=== PATIENT | female | born 1960 | race Asian ===

== ENCOUNTER 2023-01-26 09:31 | Inpatient (IN) | payer OTHER ==
[~2023-01-26] VITALS: Ht 152.4 cm; Wt 62.2 kg
[2023-01-26 09:56] LABS: BASOPHILS # (AUTO) 0.1 K/UL (0.0-0.2); BASOPHILS % (AUTO) 0.4 % (0.0-2.0); EOSINOPHILS # (AUTO) 0.1 K/uL (0.0-0.7); EOSINOPHILS % (AUTO) 0.3 % (0.0-7.0); HEMATOCRIT 33.8 % (31.2-41.9); HEMOGLOBIN 10.8 g/dL (10.9-14.3); LYMPHOCYTES # (AUTO) 0.6 K/uL (0.8-4.8); LYMPHOCYTES % (AUTO) 1.9 % (20.5-51.5); MEAN CORPUSCULAR HEMOGLOBIN 27.9 uug (24.7-32.8); MEAN CORPUSCULAR HGB CONC 32 g/dL (32.3-35.6); MEAN CORPUSCULAR VOLUME 87.3 fL (75.5-95.3); MONOCYTES # (AUTO) 1.3 K/uL (0.1-1.30); MONOCYTES % (AUTO) 4.4 % (0.0-11.0); NEUTROPHILS # (AUTO) 27.2 K/uL (1.8-8.9); PLATELET COUNT (AUTO) 415 K/uL (179-408); RED BLOOD CELL COUNT(AUTO) 3.87 MIL/uL (3.63-4.92); RED CELL DISTRIBUTION WIDTH 17.8 % (12.3-17.7); WHITE BLOOD COUNT (AUTO) 29.2 K/uL (3.8-11.8)
[2023-01-26 10:15] LABS: DIFFERENTIAL COMMENT 1
[2023-01-26 10:19] LABS: CALCIUM 10.3 mg/dL (8.5-10.1); CARBON DIOXIDE 22 mmol/L (21-32); CHLORIDE 98 mmol/L (98-107); CREATININE 5.9 mg/dL (0.6-1.3); GLUCOSE 162 mg/dL (74-106); POTASSIUM 5.3 mmol/L (3.5-5.1); SODIUM SERUM 133 mmol/L (136-145); UREA NITROGEN, BLOOD 61 mg/dL (7-18)
[2023-01-26 10:21] LABS: *BILIRUBIN,URIN NEGATIVE (NEGATIVE); *BLOOD, URINE 2+ (NEGATIVE); *CLARITY,URINE CLOUDY (CLEAR); *COLOR,URINE YELLOW (YELLOW); *KETONES,URINE NEGATIVE (NEGATIVE); *UROBILINOGEN,URINE 0.2 E.U./dl (NORMAL); LEUKOCYTE ESTERASE ,URINE 3+ (NEGATIVE); NITRITE, URINE NEGATIVE (NEGATIVE); PH,URINE 8.5 (5.0-8.0)
[2023-01-26] MEDS ORDERED: POLY17PO4 PO (10:23)
[2023-01-26] MEDS ORDERED: ZINC220C6 PO (10:23)
[2023-01-26] MEDS ORDERED: CARV25TA2 PO (10:23)
[2023-01-26] MEDS ORDERED: SEVE800T8 PO (10:23)
[2023-01-26] MEDS ORDERED: SENN1TAB59 PO (10:23)
[2023-01-26] MEDS ORDERED: AMLO-212 PO (10:23)
[2023-01-26] MEDS ORDERED: CALC500T88 PO (10:23)
[2023-01-26] MEDS ORDERED: FURO40TA5 PO (10:23)
[2023-01-26] MEDS ORDERED: TRAM50TA2 PO (10:23)
[2023-01-26] MEDS ORDERED: GLUC1KIT IM (10:23)
[2023-01-26] MEDS ORDERED: FOLI0.8T2 PO (10:23)
[2023-01-26] MEDS ORDERED: ACET325T53 PO (10:23)
[2023-01-26] MEDS ORDERED: PANT40TA49 PO (10:23)
[2023-01-26] MEDS ORDERED: ASPI81TA31 PO (10:23)
[2023-01-26] MEDS ORDERED: DOCU100T2 PO (10:23)
[2023-01-26] MEDS ORDERED: INSU100V39 SQ (10:23)
[2023-01-26] MEDS ORDERED: FERR325T28 PO (10:23)
[2023-01-26] MEDS ORDERED: CLON-418 PO (10:23)
[2023-01-26] MEDS ORDERED: GUAI100S69 PO (10:23)
[2023-01-26 10:25] LABS: ALANINE AMINOTRANSFERASE < 6 U/L (14-59); ALBUMIN 3.4 g/dL (3.4-5.0); ALKALINE PHOSPHATASE 104 U/L (50-136); ASPARTATE AMINOTRANSFERASE < 5 U/L (15-37); BILIRUBIN,DIRECT 0.1 mg/dL (0.0-0.2); BILIRUBIN,TOTAL 0.5 mg/dL (0.2-1.0); TOTAL PROTEIN, SERUM 7.5 g/dL (6.4-8.2)
[2023-01-26 10:27] LABS: *PROTEIN,URINE 3+ (NEGATIVE); UGLUCOSE 1+ (NEGATIVE)
[2023-01-26 10:47] LABS: BACTERIA,URINE MANY /HPF (NONE SEEN); RBC,URINE 20-50 /HPF (0-3); SQUAMOUS EPITHELIAL CELL,UR MODERATE /HPF (NONE SEEN); WBC,URINE TNTC /HPF (0-3)
[2023-01-26] MEDS ORDERED: MEROPENEM 1 G in IV NORMAL SALINE 100 ML IV ONE (11:00)
[2023-01-26] MEDS ORDERED: VANCOMYCIN IV 1,000 MG in IV DEXTROSE 5% 250 ML IV ONE (11:00)
[2023-01-26] MEDS ORDERED: MEROPENEM 1GM/NS 100ML IVPB **ER PYXIS ONLY IV ONE (11:14)
[2023-01-26] MEDS ORDERED: VANCOMYCIN IV 200 ML ONE (11:14)
[2023-01-26] MEDS ORDERED: TRAMADOL HCL 50 MG TABLET PO PRN ×2 (14:15→16:30)
[2023-01-26] MEDS ORDERED: GUAIFENESIN SUGAR FREE 100 MG/5 ML UDC PO PRN (14:15)
[2023-01-26] MEDS ORDERED: CALCIUM CARBONATE 500 MG TABLET PO PRN (14:15)
[2023-01-26 14:40] VITALS: BP 101/62; TEMP 98.3; O2SAT 99
[2023-01-26] MEDS ORDERED: ACETAMINOPHEN 325 MG TABLET PO PRN (15:15)
[2023-01-26] MEDS ORDERED: ONDANSETRON 4 MG/2 ML VIAL IV PRN (15:15)
[2023-01-26 16:00] VITALS: O2SAT 98
[2023-01-26] MEDS ORDERED: CALCIUM CARBONATE 500 MG TAB.CHEW PO PRN (16:30)
[2023-01-26] MEDS ORDERED: SEVELAMER CARBONATE 800 MG TABLET PO SCH (16:30)
[2023-01-26] MEDS: AMLODIPINE 5 MG TABLET PO SCH (16:54)
[2023-01-26] MEDS: DOCUSATE SODIUM 100 MG CAPSULE PO SCH (16:54)
[2023-01-26] MEDS: PIPERACILLIN/TAZO 2.25 G in IV DEXTROSE 5% 50 ML IV SCH (16:57)
[2023-01-26] MEDS ORDERED: CARVEDILOL 25 MG TABLET PO SCH (17:00)
[2023-01-26] MEDS ORDERED: Medication Not On Formulary EA (Docusate Sodium 1 TAB) PO SCH (17:00)
[2023-01-26] MEDS ORDERED: FOLIC ACID/VITAMIN B COMP W-C TABLET PO SCH (17:00)
[2023-01-26 20:00] VITALS: BP 125/66; TEMP 98.3; O2SAT 99
[2023-01-26] MEDS ORDERED: DOCUSATE SODIUM 100 MG CAPSULE PO SCH (21:00)
[2023-01-27] VITALS (7 sets, daily range): BP systolic 115–157; BP diastolic 46–65; TEMP 98.1–98.7; O2SAT 95–99
[2023-01-27] MEDS: HYDROCODONE/APAP 5-325MG TABLET PO PRN ×3 (01:13→22:06)
[2023-01-27] MEDS: PIPERACILLIN/TAZO 2.25 G in IV DEXTROSE 5% 50 ML IV SCH ×3 (01:13→16:45)
[2023-01-27] MEDS: PANTOPRAZOLE SODIUM 40 MG TABLET.DR PO SCH (06:03)
[2023-01-27 07:13] LABS: BASOPHILS # (AUTO) 0.1 K/UL (0.0-0.2); BASOPHILS % (AUTO) 0.6 % (0.0-2.0); EOSINOPHILS # (AUTO) 0.2 K/uL (0.0-0.7); EOSINOPHILS % (AUTO) 1.1 % (0.0-7.0); HEMATOCRIT 30.3 % (31.2-41.9); HEMOGLOBIN 9.9 g/dL (10.9-14.3); LYMPHOCYTES # (AUTO) 0.6 K/uL (0.8-4.8); LYMPHOCYTES % (AUTO) 4.4 % (20.5-51.5); MEAN CORPUSCULAR HEMOGLOBIN 28.7 uug (24.7-32.8); MEAN CORPUSCULAR HGB CONC 33 g/dL (32.3-35.6); MEAN CORPUSCULAR VOLUME 87.8 fL (75.5-95.3); MONOCYTES # (AUTO) 0.7 K/uL (0.1-1.30); NEUTROPHILS # (AUTO) 12.8 K/uL (1.8-8.9); NEUTROPHILS % (AUTO) 88.9 % (38.5-71.5); PLATELET COUNT (AUTO) 455 K/uL (179-408); RED BLOOD CELL COUNT(AUTO) 3.46 MIL/uL (3.63-4.92); WHITE BLOOD COUNT (AUTO) 14.4 K/uL (3.8-11.8)
[2023-01-27 07:38] LABS: DIFFERENTIAL COMMENT 1
[2023-01-27 07:44] LABS: IRON, SERUM 12 ug/dL (50-175)
[2023-01-27 08:21] LABS: THYROID STIMULATING HORMONE 1.528 mIU/mL (0.358-3.740)
[2023-01-27 08:22] LABS: ALANINE AMINOTRANSFERASE < 6 U/L (14-59); ALKALINE PHOSPHATASE 87 U/L (50-136); BILIRUBIN,TOTAL 0.5 mg/dL (0.2-1.0); CALCIUM 9.7 mg/dL (8.5-10.1); CARBON DIOXIDE 28 mmol/L (21-32); CHLORIDE 96 mmol/L (98-107); CREATININE 4.5 mg/dL (0.6-1.3); GLUCOSE 128 mg/dL (74-106); MAGNESIUM 2.3 mg/dL (1.8-2.4); NT-PRO BNP 47692 pg/mL (0-125); PHOSPHOROUS 3.3 mg/dL (2.5-4.9); POTASSIUM 4.2 mmol/L (3.5-5.1); SODIUM SERUM 132 mmol/L (136-145); TOTAL PROTEIN, SERUM 7.1 g/dL (6.4-8.2); UREA NITROGEN, BLOOD 37 mg/dL (7-18); VANCOMYCIN,RANDOM 15.1 ug/mL (20.0-30.0)
[2023-01-27] MEDS: FOLIC ACID/VITAMIN B COMP W-C TABLET PO SCH (08:31)
[2023-01-27] MEDS: ZINC SULFATE 220 MG CAPSULE PO SCH (08:31)
[2023-01-27] MEDS: AMLODIPINE 5 MG TABLET PO SCH ×2 (08:32→16:46)
[2023-01-27] MEDS: ASPIRIN 81 MG TAB.CHEW PO SCH (08:32)
[2023-01-27] MEDS: DOCUSATE SODIUM 100 MG CAPSULE PO SCH ×2 (08:32→16:45)
[2023-01-27] MEDS: CARVEDILOL 25 MG TABLET PO SCH ×2 (08:33→16:46)
[2023-01-27 08:46] LABS: CHOLESTEROL 108 mg/dL (<200); HDL CHOLESTEROL 62 mg/dL (40-60); TRIGLYCERIDES 84 MG/DL (30-150)
[2023-01-27 08:55] LABS: ASPARTATE AMINOTRANSFERASE 6 U/L (15-37)
[2023-01-27] MEDS ORDERED: ZINC SULFATE 220 MG CAPSULE PO SCH (09:00)
[2023-01-27] MEDS ORDERED: VANCOMYCIN IV 500 MG in IV DEXTROSE 5% 100 ML IV PRN (10:00)
[2023-01-27] MEDS: SEVELAMER CARBONATE 800 MG TABLET PO SCH ×2 (12:13→16:45)
[2023-01-27] MEDS: SOD FERRIC GLUC COMPLX/SUCROSE 125 MG in IV NORMAL SALINE 100 ML IV SCH (17:53)
[2023-01-28] MEDS: PIPERACILLIN/TAZO 2.25 G in IV DEXTROSE 5% 50 ML IV SCH ×3 (01:14→16:32)
[2023-01-28] MEDS: PANTOPRAZOLE SODIUM 40 MG TABLET.DR PO SCH (05:25)
[2023-01-28 06:34] LABS: BASOPHILS # (AUTO) 0.1 K/UL (0.0-0.2); BASOPHILS % (AUTO) 0.9 % (0.0-2.0); EOSINOPHILS # (AUTO) 0.4 K/uL (0.0-0.7); EOSINOPHILS % (AUTO) 4.3 % (0.0-7.0); HEMATOCRIT 29.3 % (31.2-41.9); HEMOGLOBIN 9.7 g/dL (10.9-14.3); LYMPHOCYTES # (AUTO) 1.2 K/uL (0.8-4.8); LYMPHOCYTES % (AUTO) 12.8 % (20.5-51.5); MEAN CORPUSCULAR HEMOGLOBIN 28.8 uug (24.7-32.8); MEAN CORPUSCULAR HGB CONC 33 g/dL (32.3-35.6); MEAN CORPUSCULAR VOLUME 87.3 fL (75.5-95.3); MONOCYTES # (AUTO) 0.9 K/uL (0.1-1.30); MONOCYTES % (AUTO) 10.1 % (0.0-11.0); NEUTROPHILS # (AUTO) 6.7 K/uL (1.8-8.9); NEUTROPHILS % (AUTO) 71.9 % (38.5-71.5); PLATELET COUNT (AUTO) 441 K/uL (179-408); RED BLOOD CELL COUNT(AUTO) 3.36 MIL/uL (3.63-4.92); RED CELL DISTRIBUTION WIDTH 18.2 % (12.3-17.7); WHITE BLOOD COUNT (AUTO) 9.3 K/uL (3.8-11.8)
[2023-01-28 06:52] LABS: CALCIUM 9.5 mg/dL (8.5-10.1); CREATININE 6.1 mg/dL (0.6-1.3); MAGNESIUM 2.1 mg/dL (1.8-2.4); POTASSIUM 4.9 mmol/L (3.5-5.1); VANCOMYCIN,RANDOM 12.8 ug/mL (20.0-30.0)
[2023-01-28 07:01] LABS: DIFFERENTIAL COMMENT 1
[2023-01-28] MEDS: ASPIRIN 81 MG TAB.CHEW PO SCH (08:45)
[2023-01-28] MEDS: DOCUSATE SODIUM 100 MG CAPSULE PO SCH ×2 (08:45→16:31)
[2023-01-28] MEDS: ZINC SULFATE 220 MG CAPSULE PO SCH (08:45)
[2023-01-28] MEDS: FOLIC ACID/VITAMIN B COMP W-C TABLET PO SCH (08:45)
[2023-01-28] MEDS: SEVELAMER CARBONATE 800 MG TABLET PO SCH ×3 (08:45→16:36)
[2023-01-28] MEDS: AMLODIPINE 5 MG TABLET PO SCH ×2 (08:53→16:31)
[2023-01-28] MEDS: CARVEDILOL 25 MG TABLET PO SCH ×2 (08:53→16:34)
[2023-01-28 11:09] VITALS: BP 157/57; TEMP 98; O2SAT 94
[2023-01-28] MEDS: SOD FERRIC GLUC COMPLX/SUCROSE 125 MG in IV NORMAL SALINE 100 ML IV SCH (14:57)
[2023-01-28 15:56] VITALS: BP 168/62; TEMP 98.4; O2SAT 96
[2023-01-28] MEDS ORDERED: hydrALAZINE HCL 25 MG TABLET PO PRN (19:15)
[2023-01-28 20:00] VITALS: BP 180/67; TEMP 98; O2SAT 93
[2023-01-29] VITALS: BP 167/64; TEMP 98.3; O2SAT 94
[2023-01-29] MEDS: PIPERACILLIN/TAZO 2.25 G in IV DEXTROSE 5% 50 ML IV SCH ×3 (01:47→17:21)
[2023-01-29 04:00] VITALS: BP 161/71; TEMP 98.2; O2SAT 94
[2023-01-29] MEDS: PANTOPRAZOLE SODIUM 40 MG TABLET.DR PO SCH (06:07)
[2023-01-29 07:10] LABS: BASOPHILS # (AUTO) 0.1 K/UL (0.0-0.2); BASOPHILS % (AUTO) 1.3 % (0.0-2.0); EOSINOPHILS # (AUTO) 0.5 K/uL (0.0-0.7); EOSINOPHILS % (AUTO) 6.8 % (0.0-7.0); HEMATOCRIT 28.8 % (31.2-41.9); HEMOGLOBIN 9.5 g/dL (10.9-14.3); LYMPHOCYTES % (AUTO) 13.9 % (20.5-51.5); MEAN CORPUSCULAR HEMOGLOBIN 28.7 uug (24.7-32.8); MEAN CORPUSCULAR HGB CONC 33 g/dL (32.3-35.6); MEAN CORPUSCULAR VOLUME 87.3 fL (75.5-95.3); MONOCYTES # (AUTO) 0.7 K/uL (0.1-1.30); MONOCYTES % (AUTO) 10.4 % (0.0-11.0); NEUTROPHILS # (AUTO) 4.8 K/uL (1.8-8.9); NEUTROPHILS % (AUTO) 67.6 % (38.5-71.5); PLATELET COUNT (AUTO) 424 K/uL (179-408); RED CELL DISTRIBUTION WIDTH 18.1 % (12.3-17.7); WHITE BLOOD COUNT (AUTO) 7.1 K/uL (3.8-11.8)
[2023-01-29 07:21] LABS: DIFFERENTIAL COMMENT 1
[2023-01-29 07:26] LABS: ALBUMIN 2.9 g/dL (3.4-5.0); BILIRUBIN,TOTAL 0.4 mg/dL (0.2-1.0); CALCIUM 9.6 mg/dL (8.5-10.1); CREATININE 7.1 mg/dL (0.6-1.3); MAGNESIUM 2.5 mg/dL (1.8-2.4); PHOSPHOROUS 6.3 mg/dL (2.5-4.9); POTASSIUM 5.8 mmol/L (3.5-5.1); TOTAL PROTEIN, SERUM 7.1 g/dL (6.4-8.2)
[2023-01-29] MEDS: ASPIRIN 81 MG TAB.CHEW PO SCH (08:45)
[2023-01-29] MEDS: SEVELAMER CARBONATE 800 MG TABLET PO SCH ×3 (08:45→17:21)
[2023-01-29] MEDS: FOLIC ACID/VITAMIN B COMP W-C TABLET PO SCH (08:45)
[2023-01-29] MEDS: AMLODIPINE 5 MG TABLET PO SCH ×2 (08:45→17:21)
[2023-01-29] MEDS: DOCUSATE SODIUM 100 MG CAPSULE PO SCH ×2 (08:45→17:22)
[2023-01-29] MEDS: CARVEDILOL 25 MG TABLET PO SCH ×2 (08:45→17:22)
[2023-01-29] MEDS: HYDROCODONE/APAP 5-325MG TABLET PO PRN (08:46)
[2023-01-29] MEDS: hydrALAZINE HCL 25 MG TABLET PO SCH ×3 (08:50→22:00)
[2023-01-29] MEDS: ZINC SULFATE 220 MG CAPSULE PO SCH (08:51)
[2023-01-29 11:23] VITALS: BP 151/63; TEMP 98.2; O2SAT 94
[2023-01-29] MEDS ORDERED: HYDR-894 PO (11:58)
[2023-01-29] MEDS: SOD FERRIC GLUC COMPLX/SUCROSE 125 MG in IV NORMAL SALINE 100 ML IV SCH (14:21)
[2023-01-29 15:14] VITALS: BP 166/67; TEMP 98.2; O2SAT 97
[2023-01-29 20:00] VITALS: BP 173/68; TEMP 97.8; O2SAT 94
[2023-01-30] VITALS: BP 175/70; TEMP 98.1; O2SAT 96
[2023-01-30 03:06] LABS: HEPATITIS B SURFACE AB, QUAL Reactive (.); HEPATITIS B SURFACE AG Negative (Negative)
[2023-01-30 04:00] VITALS: BP 192/76; TEMP 98.6; O2SAT 97
[2023-01-30] MEDS: hydrALAZINE HCL 25 MG TABLET PO SCH (05:17)
[2023-01-30] MEDS: PANTOPRAZOLE SODIUM 40 MG TABLET.DR PO SCH (06:10)
[2023-01-30 08:00] VITALS: BP 154/76; TEMP 98.6; O2SAT 97
[2023-01-30] MEDS: FOLIC ACID/VITAMIN B COMP W-C TABLET PO SCH (08:21)
[2023-01-30] MEDS: ZINC SULFATE 220 MG CAPSULE PO SCH (08:21)
[2023-01-30] MEDS: SEVELAMER CARBONATE 800 MG TABLET PO SCH (08:21)
[2023-01-30] MEDS: DOCUSATE SODIUM 100 MG CAPSULE PO SCH (08:21)
[2023-01-30] MEDS: ASPIRIN 81 MG TAB.CHEW PO SCH (08:21)
[2023-01-30] MEDS: AMLODIPINE 5 MG TABLET PO SCH (08:24)
[2023-01-30] MEDS: CARVEDILOL 25 MG TABLET PO SCH (08:24)
[2023-01-30] MEDS ORDERED: AMOXICILLIN-CLAVUL 500-125MG TABLET PO SCH (09:00)
[2023-01-30 09:49] VITALS: BP 175/67
== END 2023-01-30 10:30 | DRG 291 ==
LOC: ER 09:33 → TELE-TD3 13:49 → TELE3 01-27 22:37
PROVIDERS: ADMIT Internal Medicine; ATTEND Internal Medicine
PROC: 5A1D70Z Performance of Urinary Filtration, Intermittent, Less than 6 Hours Per Day (ICD-10-PCS; principal; 2023-01-27)
DX: I13.2 Hypertensive heart and chronic kidney disease with heart failure and with stage 5 chronic kidney disease, or end stage renal disease (principal); G92.8 Other toxic encephalopathy; J96.01 Acute respiratory failure with hypoxia; N18.6 End stage renal disease; I50.31 Acute diastolic (congestive) heart failure; N39.0 Urinary tract infection, site not specified; D63.8 Anemia in other chronic diseases classified elsewhere; E66.9 Obesity, unspecified; E87.5 Hyperkalemia; Z79.4 Long term (current) use of insulin; Z79.82 Long term (current) use of aspirin; Z88.2 Allergy status to sulfonamides; E11.22 Type 2 diabetes mellitus with diabetic chronic kidney disease; Z99.2 Dependence on renal dialysis; K21.9 Gastro-esophageal reflux disease without esophagitis; M19.90 Unspecified osteoarthritis, unspecified site; D64.9 Anemia, unspecified
CPT/HCPCS: 36415; 71045; 83550; 83605; 83735; 84100; 84443; 84484; 85025; 86706; 87040; 87340; 90937; 93005; 93307; A4663; G0378; J2185; J2543; J2916; J3370; J7040